=== PATIENT | male | born 1985 | race Caucasian/White ===

== ENCOUNTER 2019-12-26 20:09 | Emergency (ER) | payer OTHER ==
[2019-12-26] MEDS ORDERED: Lidocaine 1% with EPINEPHrine 1:100,000 20 ML MDV INJECT ONE (20:34)
[2019-12-26] MEDS ORDERED: Bacitracin Oint 1 GM U/D Packet TOP ONE (20:51)
[2019-12-26] MEDS ORDERED: Diphtheria,Pertussis(Acell),Tetanus Vaccine 0.5 ML Syringe IM ONE (20:51)
--- NOTE | 2019-12-26 21:35 | EDM.PDOC ---
ED HPI GENERAL MEDICAL PROBLEM - General Chief Complaint: Skin Complaint Stated Complaint: LEFT LEG SKIN Time Seen by Provider: 12/26/19 20:16 Source of Information: Reports: Patient History Limitations: Reports: No Limitations - History of Present Illness INITIAL COMMENTS - FREE TEXT/NARRATIVE: HISTORY AND PHYSICAL: History of present illness: Patient is a 34-year-old male who presents to the emergency room with concerns of a skin infection to the left lateral thigh. He states a few days ago he had hit his left lateral leg on a staple in his garage. He searched the leg for any foreign debris but states it was just a puncture wound. Since that time he has had increased redness, swelling and tenderness to the thigh. Patient denies any fever, chills, headache, change in vision, syncope or near syncope. Denies any chest pain, back pain, shortness of breath or cough. Denies any abdominal pain, nausea, vomiting, diarrhea, constipation or dysuria. Has not noted any blood in urine or stool. Patient has been eating and drinking appropriately. Review of systems: As per history of present illness and below otherwise all systems reviewed and negative. Past medical history: As per history of present illness and as reviewed below otherwise noncontributory. Surgical history: As per history of present illness and as reviewed below otherwise noncontributory. Social history: See social history for further information Family history: As per history of present illness and as reviewed below otherwise noncontributory. Physical exam: General: Well developed and well nourished 34-year-old male. Alert and orientated x 3. Nontoxic in appearance and in no acute distress. Vital signs are stable and have been reviewed by me. Nursing notes were reviewed. HEENT: Atraumatic, normocephalic, pupils equal and reactive bilaterally, negative for conjunctival pallor or scleral icterus, mucous membranes moist, TMs normal bilaterally, throat clear, neck supple, nontender, trachea midline. No drooling or trismus noted. No meningeal signs. No hot potato voice noted. Lungs: Clear to auscultation, breath sounds equal bilaterally, chest nontender. Normal work of breathing, no accessory muscles used. Heart: S1S2, regular rate and rhythm without overt murmur Abdomen: Soft, nondistended, nontender. Negative for masses or hepatosplenomegaly. Negative for costovertebral tenderness. Pelvis: Stable nontender. No enlarged lymph nodes. No testicular redness, swelling or tenderness. Skin: Diffuse erythema to the left lateral thigh with a 18 cm indurated area with central fluctuance. Otherwise remaining skin is intact, warm, dry. No lesions or rashes noted. Hematologic: No petechiae or purpra. Mucosa appropriate color and normal nail bed color and refill. Extremities: Atraumatic, moves all extremities per self without difficulty or deficits, negative for cords or calf pain. Neurovascular unremarkable. Neuro: Awake, alert, oriented. Cranial nerves II through XII unremarkable. Cerebellum unremarkable. Motor and sensory unremarkable throughout. Exam nonfocal. Psychiatric: Mood and affect are appropriate. Normal thought process. Answering questions appropriately. Notes: The skin was cleansed with chlorhexidine and 7 mL of lidocaine with epi was used to anesthetize the skin. 11 blade was used to make 2 incisions at the medial and distal end of the abscess. A curved Massiel clamp was used to open up the incision and break up any inoculations that were there. Did get moderate amount of serosanguineous/purulent drainage. A vessel loop drainage was threaded through the to incision sites to create an opening. Patient tolerated this well. The bordering erythema was outlined with a surgical marker. Bacitracin nonstick dressing applied. I have spoken with the patient/caregiver and discussed today's findings, in addition to providing specific details for plan of care. Reassessment at the time of disposition demonstrates that the patient is in no acute distress. The patient has remained stable throughout the entire ED visit and is without objective evidence for acute process requiring urgent intervention or hospitalization. NO evidence of necrotizing fasciitis. He is tolerating PO, we had a lengthy discussion that he may require inpatient/IV antibiotics if the cellulitis does not improve. We discussed returning in the next 24 to 48 hours for reevaluation. He is aware of the seriousness of his infection. The patient is stable for discharge, counseling was provided and we discussed in great detail signs and symptoms that would prompt them to return to the Emergency Department. Medication, follow up and supportive care measures were reviewed and discussed. Voices understanding and is agreeable to plan of care. Denies any further questions or concerns at this time. Diagnostics: None Therapeutics: Tdap, lidocaine with epinephrine, Keflex, Bactrim, Comanche Prescription: Keflex, Bactrim, Comanche Impression: Abscess with cellulitis Plan: 1. You have a very serious skin infection. YOU MUST return in the next 24-48 hours for re-evaluation in the ED. Take the antibiotic as directed. Continue to monitor the site as we discussed. Cleanse the area with HibiCleanse at least twice daily, Use to Miropriocin topical ointment three times daily over the next 1 week. 2. Tylenol and Ibuprofen as needed for pain. Gabby for moderate to severe pain, this medication may cause drowsiness so do not take it while driving or needing to be functioning outside of the house. 3. We encourage you to follow up with your primary care provider and/or recommended specialist in the next few days for re-evaluation and further care/management. If your symptoms should worsen, new symptoms develop or any of the signs and symptoms we discussed should arise please return to the emergency room or call 911 (if needed). Definitive disposition and diagnosis as appropriate pending reevaluation and review of above. Right Upper Leg Pain Score (Numeric/FACES): 8 Left Upper Leg Pain Score (Numeric/FACES): 8 - Related Data Allergies Allergy/AdvReac Type Severity Reaction Status Date / Time No Known Allergies Allergy Verified 12/26/19 20:25 Home Meds: Home Meds Acetaminophen/HYDROcodone [Comanche 325-5 MG] 1 dose PO Q4H #20 tablet 12/26/19 [Rx] Mupirocin Oint [Bactroban Oint] 1 dose TOP TID 7 Days #1 tube 12/26/19 [Rx] Sulfamethoxazole/Trimethoprim [Bactrim Ds Tablet] 1 each PO BID 10 Days #20 tablet 12/26/19 [Rx] cephALEXin [Keflex] 1,000 mg PO Q8H 7 Days #42 cap 12/26/19 [Rx] Past Medical History - Past Health History Medical/Surgical History: Denies Medical/Surgical History Social & Family History - Tobacco Use Tobacco Use Status *Q: Current Every Day Tobacco User Years of Tobacco use: 10 Packs/Tins Daily: 0.5 Used Tobacco, but Quit: Yes Month/Year Tobacco Last Used: today Tobacco Use Comment: Quit but restarted recently Second Hand Smoke Exposure: No - Caffeine Use Caffeine Use: Reports: Energy Drinks - Recreational Drug Use Recreational Drug Use: No ED ROS GENERAL - Review of Systems Review Of Systems: Comprehensive ROS is negative, except as noted in HPI. ED EXAM, SKIN/RASH Exam: See Below (See dictation) ED SKIN PROCEDURES - I&D Site: Left lateral thigh Skin Prep: Chlorhexidine (Hibiciens), Providone-Iodine (Betadine), Sterile Drape Local Anesthesia: Lidocaine: 1% with EPI Local Anesthetic Volume: Other (7cc) Area Incised With: 11 Blade Drainage: Purulent, Bloody, Moderate Amount Probed to Break Up Loculations: Yes Packed With: None (Loop vessel drainage) Sterile Dressing: Adhesive Dressing Complications: No Progress/Comments: Strongly encouraged/recommended return in 24-48 hours for re-evaluation Course - Vital Signs Last Recorded V/S: Last Vital Signs Temp 98 F 12/26/19 20:30 Pulse 100 12/26/19 20:30 Resp 16 12/26/19 20:30 BP 141/80 H 12/26/19 20:30 Pulse Ox 98 12/26/19 20:30 - Orders/Labs/Meds Orders: Active Orders 24 hr Category Date Time Status Vaccines to be Administered [RC] PER UNIT ROUTINE Care 12/26/19 20:51 Ordered Acetaminophen/HYDROcodone [Comanche 325-5 MG] Med 12/26/19 21:43 Once 1 tab PO ONETIME ONE Sulfamethoxazole/Trimethoprim [Septra DS] Med 12/26/19 21:43 Once 1 tab PO ONETIME ONE cephALEXin [Keflex] Med 12/26/19 21:43 Once 500 mg PO ONETIME ONE Labs: Laboratory Tests 12/26/19 Range/Units 20:49 Urine Opiates Screen NEGATIVE (NEGATIVE) Ur Oxycodone Screen NEGATIVE (NEGATIVE) Urine Methadone Screen NEGATIVE (NEGATIVE) Ur Barbiturates Screen NEGATIVE (NEGATIVE) Ur Phencyclidine Scrn NEGATIVE (NEGATIVE) Ur Amphetamine Screen NEGATIVE (NEGATIVE) U Methamphetamines Scrn NEGATIVE (NEGATIVE) U Benzodiazepines Scrn NEGATIVE (NEGATIVE) U Cocaine Metab Screen NEGATIVE (NEGATIVE) U Marijuana (THC) Screen NEGATIVE (NEGATIVE) Meds: Medications Discontinued Medications Generic Name Dose Route Start Last Admin Trade Name Freq PRN Reason Stop Dose Admin Bacitracin 1 dose 12/26/19 20:51 12/26/19 21:04 Bacitracin Oint 1 Gm TOP 12/26/19 20:52 1 dose ONETIME ONE Administration Diphtheria/Tetanus/Acell Pertussis 0.5 ml 12/26/19 20:51 12/26/19 21:04 Adacel IM 12/26/19 20:52 0.5 ml .ONCE ONE Administration Lidocaine/Epinephrine 20 ml 12/26/19 20:34 12/26/19 21:04 Xylocaine 1% With Epinephrine 1:100,000 INJECT 12/26/19 20:35 20 ml ONETIME ONE Administration Departure - Departure Time of Disposition: 21:34 Disposition: Home, Self-Care 01 Clinical Impression: Abscess Cellulitis Qualifiers: Site of cellulitis: extremity Site of cellulitis of extremity: lower extremity Laterality: left Qualified Code(s): L03.116 - Cellulitis of left lower limb - Discharge Information Prescriptions: Sulfamethoxazole/Trimethoprim [Bactrim Ds Tablet] 1 each PO BID 10 Days #20 tablet Mupirocin Oint [Bactroban Oint] 1 dose TOP TID 7 Days #1 tube cephALEXin [Keflex] 1,000 mg PO Q8H 7 Days #42 cap Acetaminophen/HYDROcodone [Comanche 325-5 MG] 1 dose PO Q4H #20 tablet Instructions: Skin Abscess, [id number], Cellulitis, Adult, [id number] Referrals: PCP,None [Primary Care Provider] - Forms: ED Department Discharge Additional Instructions: The following information is given to patients seen in the emergency department who are being discharged to home. This information is to outline your options for follow-up care. We provide all patients seen in our emergency department with a follow-up referral. The need for follow-up, as well as the timing and circumstances, are variable depending upon the specifics of your emergency department visit. If you don't have a primary care physician on staff, we will provide you with a referral. We always advise you to contact your personal physician following an emergency department visit to inform them of the circumstance of the visit and for follow-up with them and/or the need for any referrals to a consulting specialist. The emergency department will also refer you to a specialist when appropriate. This referral assures that you have the opportunity for follow-up care with a sp ecialist. All of these measure are taken in an effort to provide you with optimal care, which includes your follow-up. Under all circumstances we always encourage you to contact your private physicia n who remains a resource for coordinating your care. When calling for follow-up care, please make the office aware that this follow-up is from your recent emergency room visit. If for any reason you are refused follow-up, please contact the [facility] Emergency Department at and asked to speak to the emergency department charge nurse. [facility] [address] [place] [address] [facility] [address] [place] [address] Thank you for choosing the [facility] emergency department in [place] for your medical needs today. It was a pleasure caring for you. Today you were seen in the emergency department for skin infection/abscess. 1. You have a very serious skin infection. YOU MUST return in the next 24-48 hours for re-evaluation in the ED. Take the antibiotic as directed. Continue to monitor the site as we discussed. Cleanse the area with HibiCleanse at least twice daily, Use to Miropriocin topical ointment three times daily over the next 1 week. 2. Tylenol and Ibuprofen as needed for pain. Comanche for moderate to severe pain, this medication may cause drowsiness so do not take it while driving or needing to be functioning outside of the house. 3. We encourage you to follow up with your primary care provider and/or recommended specialist in the next few days for re-evaluation and further care/management. If your symptoms should worsen, new symptoms develop or any of the signs and symptoms we discussed should arise please return to the emergency room or call 911 (if needed). Sepsis Event Note (ED) - Evaluation Sepsis Screening Result: No Definite Risk - Focused Exam Vital Signs: Vital Signs Temp Pulse Resp BP Pulse Ox 12/26/19 20:30 98 F 100 16 141/80 H 98 - My Orders Last 24 Hours: My Active Orders 12/26/19 20:51 Vaccines to be Administered [RC] PER UNIT ROUTINE 12/26/19 21:43 Acetaminophen/HYDROcodone [Comanche 325-5 MG] 1 tab PO ONETIME ONE Sulfamethoxazole/Trimethoprim [Septra DS] 1 tab PO ONETIME ONE cephALEXin [Keflex] 500 mg PO ONETIME ONE - Assessment/Plan Last 24 Hours: My Active Orders 12/26/19 20:51 Vaccines to be Administered [RC] PER UNIT ROUTINE 12/26/19 21:43 Acetaminophen/HYDROcodone [Comanche 325-5 MG] 1 tab PO ONETIME ONE Sulfamethoxazole/Trimethoprim [Septra DS] 1 tab PO ONETIME ONE cephALEXin [Keflex] 500 mg PO ONETIME ONE
--- NOTE | 2019-12-26 21:38 | PCM.SN.2 ---
- Free Text/Narrative Note: Attending physician note I have seen and evaluated the patient with the advanced practice provider, DINH Luna. Chief Complaint: Left lateral thigh abscess Brief HPI: 34-year-old male who inadvertently hit his left thigh on a staple in the garage a couple days ago and now has a large erythematous cellulitic and fluctuant area on the left lateral thigh. No fevers. No skin lesions. No shortness of breath. The area does have severe pain. There is a couple purulent looking eruptions in the central area. There are some surrounding scalded skin type appearance especially in the middle with surrounding purple hue. ROS: Reviewed and agree Focused Exam: VITAL SIGNS: Reviewed. GENERAL: Awake, conversant, GCS 15, does appear to be in acute pain HEAD: No visible signs of trauma EYES: Pupils equal, EOM grossly intact EARS: Hearing grossly intact. MOUTH: No visible lesions NECK: Appears supple CHEST: [Breathing comfortably], [clear lung sounds] CARDIAC: Regular rhythm ABDOMEN: Soft, nontender, benign exam NEUROLOGIC EXAM: Awake and Alert, non-focal SKIN: There is a 18 cm diameter erythematous lesion with central purulent eruptions and central scalded skin type appearance. Distal neurovascular function is intact. No skip lesions. No crepitus. EXTREMITIES: [No deformities noted] VASCULAR: Appears well perfused Assessment & Plan: The patient has an erythematous swollen and fluctuant left lateral thigh. The area is not pruritic. Differential diagnosis: -Necrotizing fascitis was considered. There does not appear to be disproportionate pain, there is a mild dusky appearance on the swelling indurated area, induration is present, no crepitus, no bullae, no ecchymoses, there is no pain beyond the visibly affected area -DVT was considered, but there are no risk factors like personal history, family history, recent trauma or surgery, immobilization, or cancer -abscess was considered, and there is fluctuance, some early drainage and some induration -cellulitis is present. Given that the patient has cellulitis with abscess but no evidence of necrotizing fasciitis on exam we have performed a loop drainage. There is a purulent amount of material that also is clotted. We have placed the loop. And I have inspected the wound. Please see Ms. Davenport's note for the procedure. We will start the patient on anti-MRSA and antistreptococcal coverage with Bactrim and Keflex. Topical antibiotics will be provided with mupirocin we will also give Hibiclens soap. The patient has been instructed to return the emergency department in 24 to 48 hours without fail for reexamination. I have informed him that this is a serious type infection and if this worsens he may require operative management, washout, and further debridement. Currently he does not require admission to the hospital as he is tolerating oral intake, does not have lymphangitis, and has no evidence of necrotizing fasciitis.
[2019-12-26] MEDS ORDERED: Sulfamethoxazole/Trimethoprim 800-160 MG Tab PO ONE (21:43)
[2019-12-26] MEDS ORDERED: Cephalexin 500 MG Cap PO ONE (21:43)
[2019-12-26] MEDS ORDERED: Acetaminophen/HYDROcodone 325-5 MG Tab PO ONE (21:43)
== END 2019-12-26 22:07 | disposition home or self-care (01) ==
LOC: MW.ED 20:09
DX: L02.416 Cutaneous abscess of left lower limb (principal); L03.116 Cellulitis of left lower limb; F17.210 Nicotine dependence, cigarettes, uncomplicated; Z23 Encounter for immunization; Z79.899 Other long term (current) drug therapy
CPT/HCPCS: 10061; 80305; 90471; 90715; 99283; A9270

== ENCOUNTER 2019-12-28 18:15 | Emergency (ER) | payer OTHER ==
--- NOTE | 2019-12-28 19:09 | EDM.PDOC ---
ED HPI GENERAL MEDICAL PROBLEM - General Chief Complaint: Lower Extremity Injury/Pain Stated Complaint: LEFT LEG INFECTION Time Seen by Provider: 12/28/19 18:32 Source of Information: Reports: Patient History Limitations: Reports: No Limitations - History of Present Illness INITIAL COMMENTS - FREE TEXT/NARRATIVE: HISTORY AND PHYSICAL: History of present illness: Is a 34-year-old male who presents to the ED today with concern of reassessment for an abscess on his left inner thigh that incision and drained in the ED 2 days ago. Patient states he has been given 2 antibiotics, Keflex which she takes 3 times a day, and Bactrim which he takes twice a day. Patient states that he has not been tolerating the Bactrim antibiotic and shortly after taking it feels nauseous and vomits. Patient states he has not been able to tolerate the Bactrim at all but has been able to keep down the Keflex without any issues. Patient states the area of infection is improving greatly from his prior visit 2 days ago. Patient states that he continues to move the drain as discussed at his prior emergency room visit and he plans on following up in the clinic this week with his primary care provider. Patient denies any new or other associated of symptoms. Denies any other symptoms or concerns. Patient denies fever, chills, chest pain, shortness of breath, or cough. Denies headache, neck stiff ness, change in vision, syncope, or near syncope. Denies nausea, vomiting, abdominal pain, diarrhea, constipation, or dysuria. Has not noted any blood in urine or stool. Patient has been eating and drinking appropriately. Review of systems: As per history of present illness and below otherwise all systems reviewed and negative. Past medical history: As per history of present illness and as reviewed below otherwise noncontributory. Surgical history: As per history of present illness and as reviewed below otherwise noncontributory. Social history: See social history for further information Family history: As per history of present illness and as reviewed below otherwise noncontributory. Physical exam: General: Patient is alert, oriented, and in no acute distress. Patient sitting comfortably on exam table. HEENT: Atraumatic, normocephalic, pupils equal and reactive bilaterally, negative for conjunctival pallor or scleral icterus, mucous membranes moist, TMs normal bilaterally, throat clear, neck supple, nontender, trachea midline. No drooling or trismus noted. No meningeal signs. No hot potato voice noted. Lungs: Clear to auscultation, breath sounds equal bilaterally, chest nontender. Heart: S1S2, regular rate and rhythm without overt murmur Abdomen: Soft, nondistended, nontender. Negative for masses or hepatosplenomegaly. Negative for costovertebral tenderness. Pelvis: Stable nontender. Genitourinary: Deferred. Rectal: Deferred. Skin: Intact, warm, dry. No lesions or rashes noted. Extremities: The area of cellulitis on the left inner thigh was priorly outlined from his ED visit 2 days ago, and the area of infection has receded and much improved by approximately 4 to 5 cm around he area of abscess priorly drained. There is a vessel loop drain present without any drainage noted at this time from the area of abscess. There is a 2 to 3 cm area of induration without fluctuance. Otherwise, atraumatic, negative for cords or calf pain. Neurovascular unremarkable. Neuro: Awake, alert, oriented. Cranial nerves II through XII unremarkable. Cerebellum unremarkable. Motor and sensory unremarkable throughout. Exam nonfocal. Notes: Patient does have an adverse reaction to Bactrim antibiotic and will switch this to doxycycline and continue Keflex along with doxycycline. From has been placed on patient's adverse reaction list. The area of cellulitis appears to be much improved from prior outlined from his prior ED visit and patient's vitals are stable today in the ED. Signs and symptoms are prompt return to the ED thoroughly discussed with reymundo ambrose. Discussed importance for follow-up with primary care provider. Voices understanding and is agreeable to plan of care. Denies any further questions or concerns at this time. Diagnostics: None Therapeutics: None Prescription: Doxycycline, Zofran Impression: Need for reassessment of infection, left thigh, improved Cellulitis, left thigh, improved Medication intolerance Plan: 1. Take medication as prescribed. Stop taking the Bactrim medication which has been making you nauseous and vomit. You can use nausea medication as prescribed as needed and as discussed. Continue to take the new antibiotic prescription along with the Keflex antibiotic as discussed. 2. Continue to monitor for signs of improving vs worsening infection as discussed. Follow-up with a primary care provider this week as discussed. 3. Keep the drain in for a total of 10 days from when it was placed. On day 10, you can cut the drain line and pull it out. Definitive disposition and diagnosis as appropriate pending reevaluation and review of above. Left leg Pain Score (Numeric/FACES): 5 - Related Data Allergies Allergy/AdvReac Type Severity Reaction Status Date / Time sulfamethoxazole AdvReac Unknown Vomiting Verified 12/28/19 19:34 [From Bactrim] trimethoprim [From Bactrim] AdvReac Unknown Vomiting Verified 12/28/19 19:34 Home Meds: Home Meds Acetaminophen/HYDROcodone [[place] 325-5 MG] 1 dose PO Q4H #20 tablet 12/26/19 [Rx] Mupirocin Oint [Bactroban Oint] 1 dose TOP TID 7 Days #1 tube 12/26/19 [Rx] Sulfamethoxazole/Trimethoprim [Bactrim Ds Tablet] 1 each PO BID 10 Days #20 tablet 12/26/19 [Rx] cephALEXin [Keflex] 1,000 mg PO Q8H 7 Days #42 cap 12/26/19 [Rx] Doxycycline [Vibramycin] 100 mg PO BID 10 Days #20 cap 12/28/19 [Rx] Ondansetron [Zofran ODT] 4 mg PO Q6H PRN #8 tab.dis 12/28/19 [Rx] Past Medical History - Past Health History Medical/Surgical History: Denies Medical/Surgical History Social & Family History - Family History Family Medical History: Noncontributory - Tobacco Use Second Hand Smoke Exposure: Yes - Caffeine Use Caffeine Use: Reports: Energy Drinks - Recreational Drug Use Recreational Drug Use: No Review of Systems - Review of Systems Review Of Systems: Comprehensive ROS is negative, except as noted in HPI. ED EXAM, GENERAL - Physical Exam Exam: See Below (see dictation) Course - Vital Signs Last Recorded V/S: Last Vital Signs Temp 97.3 F 12/28/19 18:29 Pulse 73 12/28/19 18:29 Resp 16 12/28/19 18:29 BP 133/52 L 12/28/19 18:29 Pulse Ox 96 12/28/19 18:29 Departure - Departure Time of Disposition: 19:04 Disposition: Home, Self-Care 01 Clinical Impression: Medication intolerance, Need for reassessment Cellulitis Qualifiers: Site of cellulitis: extremity Site of cellulitis of extremity: lower extremity Laterality: left Qualified Code(s): L03.116 - Cellulitis of left lower limb - Discharge Information Prescriptions: Doxycycline [Vibramycin] 100 mg PO BID 10 Days #20 cap Ondansetron [Zofran ODT] 4 mg PO Q6H PRN #8 tab.dis PRN Reason: Nausea/Vomiting Instructions: Cellulitis, Adult, [id number] Referrals: PCP,None [Primary Care Provider] - Forms: ED Department Discharge Additional Instructions: The following information is given to patients seen in the emergency department who are being discharged to home. This information is to outline your options for follow-up care. We provide all patients seen in our emergency department with a follow-up referral. The need for follow-up, as well as the timing and circumstances, are variable depending upon the specifics of your emergency department visit. If you don't have a primary care physician on staff, we will provide you with a referral. We always advise you to contact your personal physician following an emergency department visit to inform them of the circumstance of the visit and for follow-up with them and/or the need for any referrals to a consulting specialist. The emergency department will also refer you to a specialist when appropriate. This referral assures that you have the opportunity for follow-up care with a specialist. All of these measure are taken in an effort to provide you with optimal care, which includes your follow-up. Under all circumstances we always encourage you to contact your private physician who remains a resource for coordinating your care. When calling for follow-up care, please make the office aware that this follow-up is from your recent emergency room visit. If for any reason you are refused follow-up, please contact the [facility] Emergency Department at and asked to speak to the emergency department charge nurse. [facility] [address] [place] [id number] [address] [address] 1. Take medication as prescribed. Stop taking the Bactrim medication which has been making you nauseous and vomit. You can use nausea medication as prescribed as needed and as discussed. Continue to take the new antibiotic prescription along with the Keflex antibiotic as discussed. 2. Continue to monitor for signs of improving vs worsening infection as discussed. Follow-up with a primary care provider this week as discussed. 3. Keep the drain in for a total of 10 days from when it was placed. On day 10, you can cut the drain line and pull it out. Sepsis Event Note (ED) - Evaluation Sepsis Screening Result: No Definite Risk - Focused Exam Vital Signs: Vital Signs Temp Pulse Resp BP Pulse Ox 12/28/19 18:29 97.3 F 73 16 133/52 L 96
== END 2019-12-28 19:23 | disposition home or self-care (01) ==
LOC: MW.ED 18:15
DX: L03.116 Cellulitis of left lower limb (principal); Z91.14 Patient's other noncompliance with medication regimen; Z88.2 Allergy status to sulfonamides; Z88.1 Allergy status to other antibiotic agents; Z77.22 Contact with and (suspected) exposure to environmental tobacco smoke (acute) (chronic)
CPT/HCPCS: 99282; 99283

== ENCOUNTER 2020-11-08 17:52 | Emergency (ER) | payer OTHER ==
--- NOTE | 2020-11-08 19:57 | CT ---
Indication: Left rib injury Technique: Noncontrast CT chest Comparison: No comparison Findings: Normal caliber thoracic aorta heart size normal. No mediastinal or hilar adenopathy. No pericardial effusion. No pneumothorax. No effusion. Lungs appear clear aside from minimal basilar atelectasis. Comminuted left distal clavicular fracture partially seen age indeterminate fracture lucencies are visualized. No rib fractures seen. Impression: 1. Comminuted left distal clavicular fracture partially seen age indeterminate. No rib fracture seen. No acute pulmonary findings. Please note that all CT scans at this facility use dose modulation, iterative reconstruction, and/or weight-based dosing when appropriate to reduce radiation dose to as low as reasonably achievable. Dictated by Queta Keating MD @ 11/08/2020 7:56:04 PM (Electronically Signed)
--- NOTE | 2020-11-08 20:01 | EDM.PDOC ---
ED HPI GENERAL MEDICAL PROBLEM - General Chief Complaint: General Stated Complaint: RIBS HURT, TROUBLE BREATHING Time Seen by Provider: 11/08/20 18:39 Source of Information: Reports: Patient History Limitations: Reports: No Limitations - History of Present Illness INITIAL COMMENTS - FREE TEXT/NARRATIVE: HISTORY AND PHYSICAL: History of present illness: Patient is a 35-year-old male who presents emergency room today with concern of left-sided rib injury that occurred 3 to 4 days ago. Patient states that it does hurt to take a deep breath in. Patient states that he was leaning over a piece of equipment and was pulling on a wrench backwards and states that he leaned harder over the piece of equipment and felt a popping sensation in his left sided rib cage. Patient states that since then, he has had continued pain and states that it hurts to cough or take a deep breath in. Patient denies any shortness of breath but does state breathing "does hurt "due to the rib injury. Patient denies any head injury or loss of consciousness or any other resuscitative symptoms. Patient denies fever, chills, chest pain, shortness of breath, or cough. Denies headache, neck stiff ness, change in vision, syncope, or near syncope. Denies nausea, vomiting, abdominal pain, diarrhea, constipation, or dysuria. Has not noted any blood in urine or stool. Patient has been eating and drinking appropriately. Review of systems: As per history of present illness and below otherwise all systems reviewed and negative. Past medical history: As per history of present illness and as reviewed below otherwise noncontributory. Surgical history: As per history of present illness and as reviewed below otherwise noncontributory. Social history: See social history for further information Family history: As per history of present illness and as reviewed below otherwise noncontributory. Physical exam: General: Patient is alert, oriented, and in no acute distress. Patient sitting comfortably on exam table. Vitals stable and reviewed by me. HEENT: Atraumatic, normocephalic, pupils equal and reactive bilaterally, negative for conjunctival pallor or scleral icterus, mucous membranes moist, TMs normal bilaterally, throat clear, neck supple, nontender, trachea midline. No drooling or trismus noted. No meningeal signs. No hot potato voice noted. Lungschest: Patient does have pain to palpation of the anterior rib cage ribs #7 and 8 without crepitus. Otherwise, clear to auscultation, breath sounds equal bilaterally, chest nontender. Heart: S1S2, regular rate and rhythm without overt murmur Abdomen: Soft, nondistended, nontender. Negative for masses or hepatosplenomegaly. Negative for costovertebral tenderness. Pelvis: Stable nontender. Genitourinary: Deferred. Rectal: Deferred. Skin: Intact, warm, dry. No lesions or rashes noted. Extremities: Atraumatic, negative for cords or calf pain. Neurovascular unremarkable. Neuro: Awake, alert, oriented. Cranial nerves II through XII unremarkable. Cerebellum unremarkable. Motor and sensory unremarkable throughout. Exam nonfocal. Notes: Incidental finding of clavicle fracture is not new on chest CT Signs and symptoms that were prompt return to the ED thoroughly discussed with patient. Discussed importance for follow-up with a primary care provider. Voices understanding and is agreeable to plan of care. Denies any further questions or concerns at this time. Diagnostics: Chest CT without contrast Therapeutics: None Prescription: None Impression: Left-sided rib injury Plan: 1. Rest, ice, elevate the affected extremity. You can apply ice 15 minutes on, 15 minutes off. 2. Tylenol and/or Ibuprofen as directed for pain management or discomfort. 3. Follow up with the primary care provider as discussed. Return to the ED as needed and as discussed. Definitive disposition and diagnosis as appropriate pending reevaluation and review of above. Left Chest Pain Score (Numeric/FACES): 7 - Related Data Allergies Allergy/AdvReac Type Severity Reaction Status Date / Time sulfamethoxazole AdvReac Unknown Vomiting Verified 12/28/19 19:34 [From Bactrim] trimethoprim [From Bactrim] AdvReac Unknown Vomiting Verified 12/28/19 19:34 Home Meds: Home Meds Acetaminophen/HYDROcodone [[place] 325-5 MG] 1 dose PO Q4H #20 tablet 12/26/19 [Rx] Mupirocin Oint [Bactroban Oint] 1 dose TOP TID 7 Days #1 tube 12/26/19 [Rx] Sulfamethoxazole/Trimethoprim [Bactrim Ds Tablet] 1 each PO BID 10 Days #20 tablet 12/26/19 [Rx] cephALEXin [Keflex] 1,000 mg PO Q8H 7 Days #42 cap 12/26/19 [Rx] Doxycycline [Vibramycin] 100 mg PO BID 10 Days #20 cap 12/28/19 [Rx] Ondansetron [Zofran ODT] 4 mg PO Q6H PRN #8 tab.dis 12/28/19 [Rx] Past Medical History - Past Health History Medical/Surgical History: Denies Medical/Surgical History Social & Family History - Family History Family Medical History: No Pertinent Family History - Tobacco Use Tobacco Use Status *Q: Current Every Day Tobacco User Years of Tobacco use: 20 Packs/Tins Daily: 0.5 - Caffeine Use Caffeine Use: Reports: None - Recreational Drug Use Recreational Drug Use: No ED ROS GENERAL - Review of Systems Review Of Systems: Comprehensive ROS is negative, except as noted in HPI. ED EXAM, GENERAL - Physical Exam Exam: See Below (See dictation) Course - Vital Signs Last Recorded V/S: Last Vital Signs Temp 97.3 F 11/08/20 18:00 Pulse 64 11/08/20 18:00 Resp 18 11/08/20 18:00 BP 126/72 11/08/20 18:00 Pulse Ox 95 11/08/20 18:00 Departure - Departure Time of Disposition: 20:01 Disposition: Home, Self-Care 01 Clinical Impression: Rib injury - Discharge Information Referrals: Maxime Amaro MD [Primary Care Provider] - Forms: ED Department Discharge Additional Instructions: The following information is given to patients seen in the emergency department who are being discharged to home. This information is to outline your options for follow-up care. We provide all patients seen in our emergency department with a follow-up referral. The need for follow-up, as well as the timing and circumstances, are variable depending upon the specifics of your emergency department visit. If you don't have a primary care physician on staff, we will provide you with a referral. We always advise you to contact your personal physician following an emergency department visit to inform them of the circumstance of the visit and for follow-up with them and/or the need for any referrals to a consulting specialist. The emergency department will also refer you to a specialist when appropriate. This referral assures that you have the opportunity for follow-up care with a specialist. All of these measure are taken in an effort to provide you with optimal care, which includes your follow-up. Under all circumstances we always encourage you to contact your private physician who remains a resource for coordinating your care. When calling for follow-up care, please make the office aware that this follow-up is from your recent emergency room visit. If for any reason you are refused follow-up, please contact the [facility] Emergency Department at and asked to speak to the emergency department charge nurse. [facility] [address] [place] [id number] [facility] [address] [place] [id number] 1. Rest, ice, elevate the affected extremity. You can apply ice 15 minutes on, 15 minutes off. 2. Tylenol and/or Ibuprofen as directed for pain management or discomfort. 3. Follow up with the primary care provider as discussed. Return to the ED as needed and as discussed. Sepsis Event Note (ED) - Focused Exam Vital Signs: Vital Signs Temp Pulse Resp BP Pulse Ox 11/08/20 18:00 97.3 F 64 18 126/72 95
== END 2020-11-08 20:14 | disposition home or self-care (01) ==
LOC: MW.ED 17:52
DX: S29.9XXA Unspecified injury of thorax, initial encounter (principal); Z72.0 Tobacco use; Z88.2 Allergy status to sulfonamides; X58.XXXA Exposure to other specified factors, initial encounter
CPT/HCPCS: 71250; 71250-26; 99283-25

== ENCOUNTER 2021-02-06 20:59 | Emergency (ER) | payer OTHER ==
[2021-02-06 22:50] LABS: CORONAVIRUS COVID-19 NAA NEGATIVE (NEGATIVE); INFLUENZA A NAA NEGATIVE (NEGATIVE); INFLUENZA B NAA NEGATIVE (NEGATIVE)
[2021-02-07] MEDS ORDERED: predniSONE 20 MG Tab PO ONE (00:45)
[2021-02-07] MEDS ORDERED: Ketorolac 15 MG/ML SDV IM ONE (00:45)
[2021-02-07] MEDS ORDERED: Albuterol/Ipratropium 3.0-0.5 MG/3 ML Neb Soln NEB ONE ×2 (00:45)
--- NOTE | 2021-02-07 00:48 | CR ---
Indication: Cough and shortness of breath Technique: Chest 1 view Comparison: Chest x-ray 06/12/2020 Findings/Impression: Cardiovascular and mediastinum: Heart size and vasculature are normal in caliber and appearance. Lungs and pleural space: Lungs are clear. No sign of infiltrate or mass. No sign of pleural effusion. No pneumothorax. Bones and soft tissues: Old left mid clavicular fracture Dictated by Margarito Linton MD @ 02/07/2021 12:47:19 AM (Electronically Signed)
[2021-02-07] MEDS ORDERED: Azithromycin 250 MG Tab PO STA (01:14)
--- NOTE | 2021-02-07 01:53 | EDM.PDOC ---
ED HPI GENERAL MEDICAL PROBLEM - General Chief Complaint: General Stated Complaint: COUGH, VOMITING Time Seen by Provider: 02/06/21 23:57 - History of Present Illness INITIAL COMMENTS - FREE TEXT/NARRATIVE: CHIEF COMPLAINT(S): Cough and sore throat HISTORY OF PRESENT ILLNESS: This is a 35-year-old man with a past medical history of asthma who comes to the emergency department with a chief complaint of cough and sore throat. The patient states that for the last 3-1/2 weeks he has been experiencing cough and sore throat with posttussive emesis. He states that he has a bifrontal headache also not associated with any blurry vision, double vision, loss of vision. He currently rates his pain as 10 out of 10. He states that the headache was mild and then got worse. He states that he is trialed Mucinex, DayQuil and NyQuil without any relief and has been able to tolerate p.o. otherwise. He states that he has had sick contacts but does not know what they have had. He denies any other symptoms. There are no exacerba ting factors or relieving factors. He denies any fevers or chills. He states that he is tried albuterol at home which does not help. REVIEW OF SYSTEMS: Constitutional: Denies fever, chills. Eyes: Denies eye pain Ears, Nose, Mouth, & Throat: Positive for sore throat and runny nose. Denies earache Cardiovascular: Denies chest pain Respiratory: Positive for nonproductive cough Gastrointestinal: Denies Nausea, vomiting, diarrhea, hematochezia. Genitourinary: Denies hematuria Skin:Denies a rash MSK: Denies joint pain Neurological: Positive for headache. Denies blurred vision, double vision, loss of vision, numbness, tingling, weakness Psychiatric: Denies depression PAST MEDICAL HISTORY: As per history of present illness and as reviewed below otherwise noncontributory. SURGICAL HISTORY: As per history of present illness and as reviewed below otherwise noncontributory. SOCIAL HISTORY: As per history of present illness and as reviewed below otherwise noncontributory. FAMILY HISTORY: As per history of present illness and as reviewed below otherwise noncontributory. EXAMINATION OF ORGAN SYSTEMS/BODY AREAS: Constitutional: Blood pressure is 135/81, heart rate 97, respiratory rate 16 with an oxygen saturation of 94% on room air. Temperature 36.9 General: Well-appearing man who is in no acute distress Psychiatric: Appropriate mood and affect. Eyes: No scleral icterus or conjunctival erythema ENMT: Moist mucous membranes. No pharyngeal erythema no tonsillar exudates or swelling. No stridor, drooling, trismus Cardiovascular: Regular, rate, and rhythm. No gallops, murmurs, or rubs. Bilateral upper extremity pulses symmetric and intact. No peripheral edema. No JVD. Respiratory: Patient coughs immediately upon any type of deep breath. There is minimal wheezing expiratory. Patient is speaking in full sentences. No crackles or rales. Gastrointestinal: Soft, non-tender, non-distended. Normoactive bowel sounds Genitourinary: No suprapubic tenderness Musculoskeletal: Normal range of motion. Skin: No lesions or abrasions. Neurological: Alert, GCS 15 strength and sensation grossly intact in upper and lower extremities bilaterally. MEDICAL DECISION MAKING AND COURSE IN THE ED WITH INTERPRETATION/REVIEW OF DIAGNOSTIC STUDIES: This is a 35-year-old man with a past medical history of asthma who presents to the emergency department with 3-1/2 weeks of unrelenting coughing, sore throat and a headache who is borderline hypoxic. Given his history of asthma I do believe there is a degree of asthma exacerbation. We will provide the patient with DuoNeb x2 and prednisone by mouth. We will provide the patient with Toradol for pain relief and obtain Covid, influenza and a chest x-ray. We will reevaluate after this. DDx: Viral pneumonia, bacterial pneumonia, asthma exacerbation Laboratory: Covid, influenza negative The radiological images were viewed by myself along with reading the report from the radiologist. Chest x-ray does not reveal an acute cardiopulmonary process. On reevaluation patient's oxygenation did improve patient appeared more comfortable. At this time I did discuss with patient that I did would like to provide him with a prescription for azithromycin and asked that he continue to use albuterol every 4-6 hours in addition to prednisone daily for the next 5 days. I do believe this is secondary to asthma exacerbation. He is to return for any new or worsening symptoms. He was amenable discharge and had no further questions. DISPOSITION: The patient was discharged home in stable condition. The patient will follow up with primary care physician in 3 to 5 days CONDITION: Fair PROCEDURES: None FINAL IMPRESSION(S)/DIAGNOSES: 1. Acute asthma exacerbation 2. Acute sore throat Sigifredo Bruce M.D. Headache Pain Score (Numeric/FACES): 10 - Related Data Allergies Allergy/AdvReac Type Severity Reaction Status Date / Time sulfamethoxazole AdvReac Unknown Vomiting Verified 12/28/19 19:34 [From Bactrim] trimethoprim [From Bactrim] AdvReac Unknown Vomiting Verified 12/28/19 19:34 Home Meds: Home Meds Acetaminophen/HYDROcodone [Sherman 325-5 MG] 1 dose PO Q4H #20 tablet 12/26/19 [Rx] Mupirocin Oint [Bactroban Oint] 1 dose TOP TID 7 Days #1 tube 12/26/19 [Rx] Sulfamethoxazole/Trimethoprim [Bactrim Ds Tablet] 1 each PO BID 10 Days #20 tablet 12/26/19 [Rx] cephALEXin [Keflex] 1,000 mg PO Q8H 7 Days #42 cap 12/26/19 [Rx] Doxycycline [Vibramycin] 100 mg PO BID 10 Days #20 cap 12/28/19 [Rx] Ondansetron [Zofran ODT] 4 mg PO Q6H PRN #8 tab.dis 12/28/19 [Rx] Azithromycin [Zithromax] 250 mg PO DAILY #4 tab 02/07/21 [Rx] predniSONE [Prednisone] 50 mg PO DAILY #5 tablet 02/07/21 [Rx] Past Medical History - Past Health History Medical/Surgical History: Denies Medical/Surgical History Social & Family History - Family History Family Medical History: No Pertinent Family History - Caffeine Use Caffeine Use: Reports: None - Recreational Drug Use Recreational Drug Use: No ED ROS GENERAL - Review of Systems Review Of Systems: See Below ED EXAM, GENERAL - Physical Exam Exam: See Below Course - Vital Signs Last Recorded V/S: Last Vital Signs Temp 36.9 C 02/06/21 21:42 Pulse 72 02/07/21 02:08 Resp 17 02/07/21 02:08 BP 131/84 02/07/21 02:08 Pulse Ox 96 02/07/21 02:08 - Orders/Labs/Meds Labs: Laboratory Tests 02/06/21 Range/Units 21:49 Influenza Type A RNA NEGATIVE (NEGATIVE) Influenza Type B RNA NEGATIVE (NEGATIVE) SARS-CoV-2 RNA (AYDE) NEGATIVE (NEGATIVE) Meds: Medications Discontinued Medications Generic Name Dose Route Start Last Admin Trade Name Cinthya PRN Reason Stop Dose Admin Albuterol/Ipratropium 3 ml 02/07/21 00:45 02/07/21 00:55 Albuterol/Ipratropium 3.0-0.5 Mg/3 Ml Neb Soln NEB 02/07/21 00:46 3 ml ONETIME ONE Administration Albuterol/Ipratropium 3 ml 02/07/21 00:45 02/07/21 00:55 Albuterol/Ipratropium 3.0-0.5 Mg/3 Ml Neb Soln NEB 02/07/21 00:46 3 ml ONETIME ONE Administration Azithromycin 500 mg 02/07/21 01:14 02/07/21 01:26 Azithromycin 250 Mg Tab PO 02/07/21 01:15 500 mg ONETIME STA Administration Ketorolac Tromethamine 15 mg 02/07/21 00:45 02/07/21 00:55 Ketorolac 15 Mg/Ml Sdv IM 02/07/21 00:46 15 mg ONETIME ONE Administration Prednisone 60 mg 02/07/21 00:45 02/07/21 00:56 Prednisone 20 Mg Tab PO 02/07/21 00:46 60 mg ONETIME ONE Administration Departure - Departure Time of Disposition: 01:51 Disposition: Home, Self-Care 01 Condition: Fair Clinical Impression: Asthma exacerbation, Bronchitis - Discharge Information *PRESCRIPTION DRUG MONITORING PROGRAM REVIEWED*: No *COPY OF PRESCRIPTION DRUG MONITORING REPORT IN PATIENT SUZANNE: No Prescriptions: predniSONE [Prednisone] 50 mg PO DAILY #5 tablet Azithromycin [Zithromax] 250 mg PO DAILY #4 tab Instructions: Asthma, Adult, [id number], Acute Bronchitis, Adult Referrals: Alem Mims DO [Primary Care Provider] - Forms: ED Department Discharge Additional Instructions: You were evaluated today on an emergent basis. At this time your x-ray did not reveal any evidence of pneumonia. We did treat you with albuterol here in the emergency department I do believe that you are experiencing some bronchitis/asthma exacerbation. I recommend you continue to use your albuterol every 2-4 hours for wheezing and shortness of breath. I did send you a prescription for azithromycin which you need to start on Tuesday and take 1 tablet a day. In addition I provided you with prednisone which should be used daily starting Tuesday also. If you have any worsening symptoms please return to the emergency department. Otherwise follow-up with your primary care physician within 3 to 5 days. Please use Tylenol and Motrin alternating for pain relief. Please use: Tylenol 500-1000mg every 6 hours (DO NOT TAKE MORE THAN 4000mg in 1 day) Ibuprofen 400mg every 6 hours (Take with food as it can cause ulcers, GI upset) Example schedule: 8:00 AM (Tylenol 500-1000mg) 11:00 AM (Ibuprofen 400mg) 2:00 PM (Tylenol 500-1000mg) 5:00 PM (Ibuprofen 400mg) [facility] [address] [place] [id number] [id number] The patient is informed of any results of their evaluation and diagnostic workup and all questions are answered. They are given discharge instructions and return precautions. The patient is stable for discharge. The patient states they understand and agree with the plan and that they will return if their symptoms get worse or if they have any new concerns. The following information is given to patients seen in the emergency department who are being discharged to home. This information is to outline your options for follow-up care. We provide all patients seen in our emergency department with a follow-up referral. The need for follow-up, as well as the timing and circumstances, are variable de pending upon the specifics of your emergency department visit. If you don't have a primary care physician on staff, we will provide you with a referral. We always advise you to contact your personal physician following an emergency department visit to inform them of the circumstance of the visit and for follow-up with them and/or the need for any referrals to a consulting specialist. The emergency department will also refer you to a specialist when appropriate. This referral assures that you have the opportunity for follow-up care with a specialist. All of these measure are taken in an effort to provide you with optimal care, which includes your follow-up. Under all circumstances we always encourage you to contact your private physician who remains a resource for coordinating your care. When calling for follow-up care, please make the office aware that this follow-up is from your recent emergency room visit. If for any reason you are refused follow-up, please contact the [facility] Emergency Department at and asked to speak to the emergency department charge nurse.
== END 2021-02-07 02:09 | disposition home or self-care (01) ==
LOC: MW.ED 20:59
DX: J45.901 Unspecified asthma with (acute) exacerbation (principal); J02.9 Acute pharyngitis, unspecified; Z88.1 Allergy status to other antibiotic agents; Z20.822 Contact with and (suspected) exposure to COVID-19
CPT/HCPCS: 0240U; 71045; 96372; 99284; A9270; J1885; J7620-GY

== ENCOUNTER 2022-02-02 19:48 | Emergency (ER) | payer BC, OTHER | END 2022-02-02 21:20 | disposition home or self-care (01) | LOC: MW.ED 19:48 | DX: Z02.89 Encounter for other administrative examinations (principal); Z72.0 Tobacco use; Z88.2 Allergy status to sulfonamides | CPT/HCPCS: 99282 ==

== ENCOUNTER 2022-05-20 01:52 | Emergency (ER) | payer BC ==
[2022-05-20] MEDS ORDERED: Octyl 2-Cyanoacrylate 0.5 g/0.5 mL 1 APPLIC TUBE TOP ONE (02:29)
== END 2022-05-20 04:25 | disposition home or self-care (01) ==
LOC: MW.ED 01:52
DX: S01.81XA Laceration without foreign body of other part of head, initial encounter (principal); Z88.1 Allergy status to other antibiotic agents; W01.198A Fall on same level from slipping, tripping and stumbling with subsequent striking against other object, initial encounter
CPT/HCPCS: 12011; 70450; 72125; 99283; A9270

== ENCOUNTER 2023-07-26 17:55 | Emergency (ER) | payer BC ==
[2023-07-26] MEDS: Lidocaine 1% PF 2 ML SDV INJECT ONE (18:23)
== END 2023-07-26 19:08 | disposition home or self-care (01) ==
LOC: MW.ED 17:55
DX: S61.211A Laceration without foreign body of left index finger without damage to nail, initial encounter (principal); Z88.2 Allergy status to sulfonamides; Z88.8 Allergy status to other drugs, medicaments and biological substances; Z79.899 Other long term (current) drug therapy; W22.8XXA Striking against or struck by other objects, initial encounter
CPT/HCPCS: 12002; 73140-26-F1; 73140-F1; 99283; J3490